=== PATIENT | male | born 1995 | race Caucasian/White ===

== ENCOUNTER 2017-09-14 17:05 | Emergency (ER) | payer MEDICAID ==
[~2017-09-14] VITALS: Ht 177.8 cm; Wt 79.5 kg
[2017-09-14] MEDS ORDERED: SODIUM CHLORIDE 0.9% 1,000 ML IV ONE (18:00)
[2017-09-14] MEDS ORDERED: KETOROLAC TROMETHAMINE 30 MG/ML VIAL IVP ONE (18:15)
[2017-09-14] MEDS ORDERED: DEXAMETHASONE SOD PHOS 4 MG/ML 5 ML VIAL IVP ONE (18:15)
[2017-09-14] MEDS ORDERED: CefTRIAXone SODIUM 1 GM in DEXTROSE 5%-WATER 10 ML IV ONE (18:15)
[2017-09-14] MEDS ORDERED: ACETAMINOPHEN 1000 MG/ISO-OSM 100 ML IV ONE (18:15)
[2017-09-14 20:23] VITALS: BP 128/74
== END 2017-09-14 20:25 | disposition home or self-care (01) ==
LOC: EMS 17:05
DX: J03.90 Acute tonsillitis, unspecified (principal); J02.9 Acute pharyngitis, unspecified
CPT/HCPCS: 87430; 96365; 96368; 96375; 99284; J0131; J0696; J1100; J1885; J7030; J7060

== ENCOUNTER 2017-09-20 15:14 | Emergency (ER) | payer MEDICAID ==
[~2017-09-20] VITALS: Ht 177.8 cm; Wt 78.2 kg
[2017-09-20] MEDS ORDERED: ANTIBIOTIC PO (15:48)
[2017-09-20 16:20] VITALS: BP 126/55
== END 2017-09-20 17:03 | disposition home or self-care (01) ==
LOC: EMS 15:18
DX: Z02.89 Encounter for other administrative examinations (principal)
CPT/HCPCS: 99281

== ENCOUNTER 2020-10-29 03:54 | Emergency (ER) | payer MEDICAID ==
[~2020-10-29] VITALS: Ht 177.8 cm; Wt 84.1 kg
[~2020-10-29 03:54] MED LIST: ANTIBIOTIC PO
[2020-10-29] MEDS ORDERED: DEXAMETHASONE SOD PHOS 4 MG/ML 5 ML VIAL IM ONE (04:30)
[2020-10-29] MEDS ORDERED: KETOROLAC TROMETHAMINE 30 MG/ML VIAL IM ONE (04:30)
[2020-10-29 06:07] VITALS: BP 119/73
== END 2020-10-29 06:55 | disposition home or self-care (01) ==
LOC: EMS 03:55
DX: J02.9 Acute pharyngitis, unspecified (principal); Z20.822 Contact with and (suspected) exposure to COVID-19
CPT/HCPCS: 87430; 96372; 99284; J1100; J1885; U0003

== ENCOUNTER 2021-05-09 15:22 | Emergency (ER) | payer MEDICAID ==
[~2021-05-09] VITALS: Ht 177.8 cm; Wt 85.0 kg
[2021-05-09 15:24] VITALS: BP 136/72
== END 2021-05-09 16:53 | disposition home or self-care (01) ==
LOC: EMS 15:24
DX: J02.9 Acute pharyngitis, unspecified (principal)
CPT/HCPCS: 99283; Z7502

== ENCOUNTER 2021-11-12 04:48 | Emergency (ER) | payer MEDICAID ==
[~2021-11-12] VITALS: Ht 172.7 cm; Wt 77.0 kg
[2021-11-12 04:56] VITALS: BP 128/70
[2021-11-12 05:40] LABS: COVID AG,FIA SOURCE NASAL SWAB
[2021-11-12 05:55] LABS: RAPID GROUP A STREP POSITIVE (NEGATIVE)
[2021-11-12 06:00] LABS: INFLUENZA TYPE A NEGATIVE FOR TYPE A (NEGATIVE); INFLUENZA TYPE B NEGATIVE FOR TYPE B (NEGATIVE)
[2021-11-12] MEDS ORDERED: BENZ1LOZ50 PO (06:14)
[2021-11-12] MEDS ORDERED: IBUP-2070 PO (06:14)
[2021-11-12] MEDS ORDERED: AMOX500C2 PO (06:14)
== END 2021-11-12 06:51 | disposition home or self-care (01) ==
LOC: EMS 04:49
DX: J02.0 Streptococcal pharyngitis (principal); Z20.822 Contact with and (suspected) exposure to COVID-19
CPT/HCPCS: 87430; 87804; 99283

== ENCOUNTER 2021-11-12 17:45 | Emergency (ER) | payer MEDICAID ==
[~2021-11-12] VITALS: Ht 177.8 cm; Wt 84.1 kg
[~2021-11-12 17:45] MED LIST changes: +AMOX500C2 PO; -ANTIBIOTIC PO; +BENZ1LOZ50 PO; +IBUP-2070 PO
[2021-11-12 17:46] VITALS: BP 149/94
[2021-11-12] MEDS ORDERED: DEXAMETHASONE SOD PHOS 4 MG/ML 5 ML VIAL IM ONE (18:15)
== END 2021-11-12 18:40 | disposition home or self-care (01) ==
LOC: EMS 17:46
DX: J02.0 Streptococcal pharyngitis (principal); H66.91 Otitis media, unspecified, right ear; Z87.898 Personal history of other specified conditions
CPT/HCPCS: 96372; 99283; J1100